=== PATIENT | female | born 1985 | race Caucasian/White ===

== ENCOUNTER 2019-08-04 13:20 | Inpatient (IN) | payer OTHER ==
[2019-07-26 18:57] VITALS: BMI 21.1
--- NOTE | 2019-08-03 09:37 | HP ---
Admitting History and Physical - Primary Care Physician PCP: Aurelio Huertas - Admission Chief Complaint: High risk for breast cancer History of Present Illness: Patient is a 34 yo female who presents as a high risk for breast cancer patient secondary to strong family hx of breast and ovarian cancer and personal hx of BRCA positivity. Mammo, US and MRI done 06/2019 were all wnl. The patient is now presenting for bilateral mastectomy with implant reconstruction. History Source: Patient Limitations to Obtaining History: No Limitations - Past Medical History ...LMP Comment: s/p Hysterectomy Additional Past Medical History: NONE - Past Surgical History Past Surgical History: Yes: Oopherectomy (left side sec to cyst 12/2012) Additional Past Surgical History: I & D of right breast abscess 2015 - Smoking History Smoking history: Never smoked Have you smoked in the past 12 months: No - Alcohol/Substance Use Hx Alcohol Use: Yes (socialy) Home Medications - Allergies Allergies/Adverse Reactions: Allergies Allergy/AdvReac Type Severity Reaction Status Date / Time bacitracin Allergy Swelling Verified 07/26/19 19:06 [From Neosporin ([id number])] miconazole Allergy Swelling Verified 07/26/19 19:06 [From Neosporin AF] neomycin Allergy Swelling Verified 07/26/19 19:06 [From Neosporin ([id number])] polymyxin B Allergy Swelling Verified 07/26/19 19:06 [From Neosporin ([id number])] - Home Medications Home Medications: Ambulatory Orders Estradiol 0.05 mg TD WEEKLY 07/26/19 Family Medical History Family Hx Cancer: Mother (ovarian cancer at 43), Father (prostate cancer at 55) Other Family History: maternal aunt x 2 breast cancer. maternal uncle- melanoma. maternal cousin BRCA pos. paternal GM-CRC Review of Systems - Review of Systems Constitutional: reports: No Symptoms Cardiovascular: reports: No Symptoms Respiratory: reports: No Symptoms Physical Examination Constitutional: Yes: Well Nourished, Calm Breast(s): Yes: Other (Ptotic C-cups with no significant skin changes or nipple discharge. No suspicious masses or adenopathy noted bilaterally.) Problem List - Problems (1) At high risk for breast cancer Code(s): Z91.89 - OT PERSONAL RISK FACTORS, NOT ELSEWHERE CLASSIFIED Assessment/Plan Plan: Bilateral mastectomy with implant reconstruction
[2019-08-04] MEDS ORDERED: fentaNYL CITRATE 250 MCG/5 ML VIAL ONE (13:46)
[2019-08-04] MEDS ORDERED: ONDANSETRON 4 MG/2 ML VIAL ONE (13:46)
[2019-08-04] MEDS ORDERED: DEXAMETHASONE SOD PHOSPHATE 4 MG/1 ML VIAL ONE (13:46)
[2019-08-04] MEDS ORDERED: ceFAZolin SODIUM 1 GM VIAL ONE ×4 (13:46→16:08)
[2019-08-04] MEDS ORDERED: PROPOFOL 20 ML ONE (13:47)
[2019-08-04] MEDS ORDERED: ROCURONIUM BROMIDE 50 MG/5 ML SYRINGE ONE ×2 (13:47→16:08)
[2019-08-04] MEDS ORDERED: MIDAZOLAM HCL 2 MG/2 ML SINGLE DOSE VIAL ONE (13:47)
[2019-08-04] MEDS ORDERED: SUCCINYLCHOLINE CHLORIDE 200 MG/10 ML SYRINGE ONE (13:47)
[2019-08-04] MEDS ORDERED: GENTAMICIN SO4 80 MG/2 ML VIAL ONE ×2 (14:08→14:29)
[2019-08-04] MEDS ORDERED: LIDOCAINE 1%/EPI 1:100000 (20 ML MULTI DOSE VIAL) ONE ×2 (14:08→14:29)
[2019-08-04] MEDS ORDERED: BUPIVACAINE HCL/PF 0.5% (5MG/ML) 10 ML VIAL ONE ×2 (14:08→14:29)
[2019-08-04] MEDS ORDERED: BUPIVACAINE LIPOSOME/PF (EXPAREL) 266 MG/20 ML VIAL ONE (14:34)
[2019-08-04] MEDS ORDERED: oxyCODONE HCL 5 MG TABLET PO PRN (14:36)
[2019-08-04] MEDS ORDERED: ESTRADIOL 0.05 MG TD SCH (14:45)
[2019-08-04] MEDS ORDERED: DEXTROSE 5%-0.45% SALINE 1,000 ML IV SCH (14:45)
[2019-08-04] MEDS ORDERED: LACTATED RINGERS SOLUTION 1,000 ML IV SCH (15:15)
[2019-08-04] MEDS ORDERED: PROMETHAZINE HCL 25 MG/1 ML VIAL IVPB PRN (15:17)
[2019-08-04] MEDS ORDERED: ePHEDrine SULFATE 50 MG/1 ML AMPULE ONE (16:17)
[2019-08-04] MEDS ORDERED: BUPIVACAINE HCL/PF 0.5% (5 MG/ML) 30 ML VIAL IJ ONE (16:33)
[2019-08-04] MEDS ORDERED: BUPIVACAINE LIPOSOME/PF (EXPAREL) 266 MG/20 ML VIAL NR ONE (16:33)
[2019-08-04] MEDS ORDERED: NEOSTIGMINE METHYLSULFATE 0.5 MG/ML - 10 ML MDV ONE (17:02)
[2019-08-04] MEDS ORDERED: GLYCOPYRROLATE 0.2 MG/1 ML VIAL ONE (17:02)
[2019-08-04] MEDS ORDERED: KETOROLAC TROMETHAMINE 30 MG/1 ML VIAL ONE (17:16)
--- NOTE | 2019-08-04 17:55 | OP ---
Operative Note - Note: Operative Date: 08/04/19 Pre-Operative Diagnosis: high risk breast cancer Operation: bilateral nipple sparing mastectomies with reconstruction/cortiva allograft dermis and implants Surgeon: Dane Zabala Linderman Operator: Dorota Mike Anesthesiologist/PILOT TEACHER: Melony Mota Anesthesia: General Estimated Blood Loss (mls): 100 Fluid Volume Replaced (mls): 1,700 Operative Report Dictated: Yes
[2019-08-04] MEDS: ONDANSETRON 4 MG/2 ML VIAL IVPUSH PRN (19:56)
[2019-08-04] MEDS: ACETAMINOPHEN 325 MG TABLET (FP) PO PRN (19:56)
[2019-08-04] MEDS: oxyCODONE HCL 5 MG TABLET PO PRN (19:57)
[2019-08-04] MEDS: CEFAZOLIN 1 GM/D5W 1 GRAM/50 ML BAG IVPB SCH ×2 (21:04→22:50)
[2019-08-05] MEDS: ACETAMINOPHEN 325 MG TABLET (FP) PO PRN ×5 (00:06→23:55)
[2019-08-05] MEDS: oxyCODONE HCL 5 MG TABLET PO PRN (00:07)
[2019-08-05] MEDS: CEFAZOLIN 1 GM/D5W 1 GRAM/50 ML BAG IVPB SCH ×4 (03:55→20:16)
[2019-08-05 08:04] LABS: HEMATOCRIT 31.2 % (32.4-45.2); HEMOGLOBIN 10.6 GM/dl (10.7-15.3); MCH 31.7 pg (25.7-33.7); MCHC 34.1 g/dl (32.0-36.0); MEAN PLT VOLUME 9.8 fl (7.5-11.1); PLATELET COUNT 165 K/MM3 (134-434); RBC 3.36 M/mm3 (3.60-5.2); RDW 12.6 % (11.6-15.6); WHITE BLOOD COUNT 12.1 K/mm3 (4.0-10.8)
--- NOTE | 2019-08-05 09:09 | OP ---
DATE OF OPERATION: 08/04/2019 PREOPERATIVE DIAGNOSIS: Genetic susceptibility for breast cancer, BRCA1 positive. POSTOPERATIVE DIAGNOSIS: Genetic susceptibility for breast cancer, BRCA1 positive. PROCEDURE: Bilateral total nipple-sparing mastectomies through inframammary approach with bilateral direct implant reconstruction with Cortiva. PRIMARY SURGEON: Eduardo Dodge MD MIXING SUPERVISOR: DAY Monique PLASTIC SURGEON: Dane Zabala MD MIXING SUPERVISOR: DAY Linn COMPLICATIONS: There were no complications. ANESTHESIA: The patient underwent general endotracheal anesthesia for the procedure. INDICATION: Briefly the patient is a 33-year-old premenopausal white female of [place] descent. She has a strong family history with her mother who had ovarian cancer at age 43 and 2 maternal aunts had breast cancer at age 30 and 45. She has a maternal uncle who had melanoma at age 35 and her father had prostate cancer at age 55. She has a maternal cousin who tested BRCA1 positive. The patient herself tested BRCA1 positive in April 2012 and had been getting close surveillance. She had a hysterectomy and right oophorectomy in November 2018. The patient decided to undergo bilateral risk-reduction prophylactic mastectomies and was seen in consultation preoperatively and understood our technique of an inframammary incision with a nipple-sparing approach. She understood that we do retroareolar biopsies at the time of surgery. If these show cancer we would remove the nipples. She understood the lack of any evidence shown for doing prophylactic sentinel lymph node biopsy. She was seen by Dr. Zabala, the plastic surgeon, preoperatively and understood the direct implant reconstruction. She had a recent mammography as well as MRI which were negative. The patient was brought in for the surgery on August 04, 2019. In the holding area site verification was made and informed consent was obtained. She was marked preoperatively by the plastic surgeon. DESCRIPTION OF PROCEDURE: She was brought into the operating room and laid on the OR table in a supine position. Venodynes were placed on the lower extremities prior to induction. She received 2 g of Ancef prior to incision. She underwent general endotracheal anesthesia and both breasts were sterilely prepped and draped in the usual fashion. Timeout was performed. The left mastectomy was first performed. An inframammary incision was marked out about 9 cm in length in the inframammary fold and the incision was made and the skin edges were everted. The breast was retracted inferiorly using [place] clamps. The skin flap was raised using the PEAK radiofrequency device superiorly to the level of the clavicle, medially to the level of the sternum, laterally to the level of the latissimus, and inferiorly below the level of the inframammary fold. The breast was then taken down off the pectoralis major muscle using electrocautery from inferomedial to superolateral and completely removed intact. It was oriented with a long lateral, short superior suture and weighed to allow for appropriate cosmetic result. The skin edges were then inspected and the skin flaps trimmed to remove all visual breast tissue. A retroareolar biopsy was taken underneath the left nipple-areolar complex and sent for frozen section and came back negative so the left nipple was spared. Hemostasis was achieved and the wound was copiously irrigated with warm sterile saline. At this point the right breast was approached. A right breast inframammary incision was made again about 9 cm in length symmetrical to the right breast inframammary incision. The skin edges were everted and the breast was retracted inferiorly using [place] clamps. The skin flap was raised using the PEAK radiofrequency device superiorly to the level of the clavicle, medially to the level of the sternum, laterally to the level of the latissimus, and inferiorly below the level of the inframammary fold. The breast was taken down off the pectoralis major muscle using electrocautery from inferomedial to superolateral and completely removed intact. It was oriented with a long lateral, short superior suture and weighed to allow for appropriate cosmetic result. The skin flaps were then inspected and trimmed to remove all visual breast tissue. A retroareolar biopsy was taken underneath the right nipple-areolar complex and sent for frozen section and came back negative so the right nipple was spared as well. Hemostasis was achieved and the wound was copiously irrigated with warm sterile saline. At this point Dr. Zabala became the primary surgeon and performed the bilateral subpectoral direct implant reconstruction with Cortiva. The Cortiva was sutured into the inferolateral aspect of the pectoralis major muscle to allow for the direct implant reconstructions. Two Carl drains will be placed around both implants and brought through separate stab incisions on the lateral skin flap and secured in place using 3-0 nylon suture. All wounds will be closed by Plastic Surgery using interrupted 3-0 deep dermal PDS suture and a running 4-0 subcuticular PDS suture. We did use the SPY skin perfusion device during the case which showed excellent blood flow in both skin flaps and nipple-areolar complexes. The patient will be extubated and recovered in the postanesthesia care unit after the reconstruction and then will be recovered and admitted postoperatively for pain and wound management. We did instill 60 mL of Exparel which was diluted with 20 mL of saline and 20 mL of 0.25% Marcaine and 30 mL were injected into each chest wall prior to closure for postoperative pain control. All sponge and needle counts were correct at the end of the case and the estimated blood loss was about 200 mL. She was hemodynamically stable throughout. EDUARDO DODGE M.D. [id number]
--- NOTE | 2019-08-05 09:31 | PN ---
Progress Note (short form) - Note Progress Note: 34F s/p bilateral prophylactic mastectomy with breast reconstruction, POD 1. Pt states she is doing well only complaining of pain. Pt denies fever, chills, n/v, sob. Vital Signs Temp 98.0 F 08/05/19 06:00 Pulse 95 H 08/05/19 06:00 Resp 18 08/05/19 06:00 BP 103/55 L 08/05/19 06:00 Pulse Ox 100 08/05/19 06:00 Intake & Output 08/04/19 08/04/19 08/05/19 11:59 23:59 11:59 Intake Total 1700 1460 Output Total 385 950 Balance 1315 510 Weight 135 lb Intake: IV 1700 1000 D5-1/2Ns - 1,000 ml @ 100 1000 mls/hr IV ASDIR KEENAN Rx#: [id number] IVPB 100 Oral 360 Output: Drainage 135 150 drain1 0 30 drain2 10 45 drain3 40 75 drain4 0 0 Urine 800 Straight Cath 800 Estimated Blood Loss 250 Other: Voiding Method Bedpan Toilet Height 5 ft 7 in Body Mass Index (BMI) 21.1 Weight Measurement Method Standing Scale CBC, BMP 08/05/19 07:34 PE: Gen: A&O x 3 Resp: breathing comfortably Breast: incisions clean no erythema or discharge drains in place with serosanguinous discharge, skin is pink and warm. Problem List - Problems (1) At high risk for breast cancer Assessment/Plan: Plan -pt appears to be doing well, continue monitor drain output -pain control -OOB/ambulate -continue bra Pt is cleared for discharge from plastic standpoint, should follow up with Dr. Zabala as outpatient.
--- NOTE | 2019-08-05 09:33 | SURG ---
Surgery Mash Tub Cooker Note Mash Tub Cooker: Dorota Mike PA-C Date of Service: 08/04/19 Diagnosis: high risk breast cancer Procedure: bilateral nipple sparing mastectomies with reconstruction/cortiva allograft dermis and implants I was present for the entirety of the operative procedure. For further detail, please refer to operative report. Visit type - Case Type Case Type: Scheduled - Emergency Emergency Visit: No - New patient This patient is new to me today: Yes Date on this admission: 08/05/19 - Critical Care Critical Care patient: No
[2019-08-05] MEDS: ONDANSETRON 4 MG/2 ML VIAL IVPUSH PRN (09:34)
[2019-08-05] MEDS: diazePAM 5 MG TABLET PO PRN ×2 (10:51→23:57)
--- NOTE | 2019-08-05 12:52 | PN ---
Progress Note, Physician Chief Complaint: High risk breast cancer S/P bilateral total mastectomies nipples sparing with implant and dermal matrix POD#1 History of Present Illness: Patient was dizzy and lightheaded last night after standing BP dropped to 90/ 45 but increased after fluid to 102/56. She is less lightheaded this am and will try combination of tylenol with valium since oxycodone is causing some nausea and not relieving the pain. zofran given for nausea. - Current Medication List Current Medications: Active Medications Acetaminophen (Tylenol -) 650 mg PO Q4H PRN PRN Reason: FEVER Last Admin: 08/05/19 09:32 Dose: 650 mg Diazepam (Valium -) 5 mg PO Q8H PRN PRN Reason: MUSCLE SPASMS Last Admin: 08/05/19 10:51 Dose: 5 mg Cefazolin Sodium (Ancef 1 Gm Premixed Ivpb -) 1 gram in 50 mls @ 100 mls/hr IVPB Q6H-IV KEENAN Stop: 08/11/19 14:59 Last Admin: 08/05/19 09:31 Dose: 100 mls/hr Dextrose/Sodium Chloride (D5-1/2ns -) 1,000 mls @ 100 mls/hr IV ASDIR KEENAN Non-Formulary Medication (Estradiol [Estradiol]) 0.05 mg TD WEEKLY KEENAN Ondansetron HCl (Zofran Injection) 4 mg IVPUSH Q6H PRN PRN Reason: NAUSEA AND/OR VOMITING Last Admin: 08/05/19 09:34 Dose: 4 mg Oxycodone HCl (Roxicodone -) 5 mg PO Q4H PRN PRN Reason: PAIN LEVEL 1-5 Last Admin: 08/05/19 00:07 Dose: 5 mg Oxycodone HCl (Roxicodone -) 10 mg PO Q4H PRN PRN Reason: PAIN LEVEL 6-10 - Objective Vital Signs: Vital Signs Temperature 98.0 F 08/05/19 06:00 Pulse Rate 95 H 08/05/19 06:00 Respiratory Rate 18 08/05/19 06:00 Blood Pressure 103/55 L 08/05/19 06:00 O2 Sat by Pulse Oximetry (%) 100 08/05/19 06:00 Constitutional: Yes: No Distress Breast(s): Yes: Other (Bilateral flaps viable incision intact minimal echymosis MATHEW drains intact serosanguinous output, dressing changed) Labs: CBC, BMP 08/05/19 07:34 Problem List - Problems (1) At high risk for breast cancer Code(s): Z91.89 - OT PERSONAL RISK FACTORS, NOT ELSEWHERE CLASSIFIED Assessment/Plan IV antibiotics SCD spirometry monitor BP and for anymore C/Os of dizziness or lightheadedness valium/tylenol prn plan for discharge tomorrow
[2019-08-05] MEDS ORDERED: LACTATED RINGERS SOLUTION 1000 ML INFUS.BAG IV ONE (13:05)
[2019-08-06] MEDS: CEFAZOLIN 1 GM/D5W 1 GRAM/50 ML BAG IVPB SCH ×2 (02:47→09:28)
[2019-08-06] MEDS: ACETAMINOPHEN 325 MG TABLET (FP) PO PRN ×2 (07:12→11:26)
[2019-08-06 08:41] LABS: ALBUMIN 3.1 g/dl (3.4-5.0); BILIRUBIN,TOTAL 0.4 mg/dl (0.2-1); CALCIUM 8.2 mg/dl (8.5-10); CREATININE 0.6 mg/dl (0.55-1.3); POTASSIUM 3.9 mmol/L (3.5-5.1); TOT PROT 5.5 g/dl (6.4-8.2)
[2019-08-06] MEDS: diazePAM 5 MG TABLET PO PRN (09:28)
[2019-08-06 09:37] LABS: BASO % 0.3 % (0-2.0); EOS % 3.1 % (0-4.5); HEMATOCRIT 31.2 % (32.4-45.2); HEMOGLOBIN 10.6 GM/dl (10.7-15.3); LYMPH % 17.9 % (8-40); MCHC 34.1 g/dl (32.0-36.0); MEAN PLT VOLUME 10.1 fl (7.5-11.1); MONO % 6.5 % (3.8-10.2); NEUT % 72.2 % (42.8-82.8); PLATELET COUNT 151 K/MM3 (134-434); RBC 3.32 M/mm3 (3.60-5.2); RDW 12.6 % (11.6-15.6); WHITE BLOOD COUNT 8.1 K/mm3 (4.0-10.8)
--- NOTE | 2019-08-06 10:22 | EKG ---
Test Reason : Blood Pressure : / mmHG Vent. Rate : 080 BPM Atrial Rate : 080 BPM P-R Int : 150 ms QRS Dur : 090 ms QT Int : 368 ms P-R-T Axes : 042 033 046 degrees QTc Int : 424 ms NORMAL SINUS RHYTHM NORMAL ECG NO PREVIOUS ECGS AVAILABLE Confirmed by KENNY LEIVA, FIDEL (2014) on 08/06/2019 10:22:31 AM Referred By: Aurelio Huertas Confirmed By:FIDEL COX MD
[2019-08-06 13:20] VITALS: BP 94/55; PULSE 96; TEMP 99.1
--- NOTE | 2019-08-06 13:20 | DS ---
Physical Examination Vital Signs: Vital Signs Temperature 98.1 F 08/06/19 08:52 Pulse Rate 90 08/06/19 08:52 Respiratory Rate 16 08/06/19 08:52 Blood Pressure 109/68 08/06/19 08:52 O2 Sat by Pulse Oximetry (%) 100 08/06/19 08:52 Constitutional: Yes: Well Nourished, No Distress Wound/Incision: Yes: Clean/Dry, Well Approximated (Flaps are viable, no signs of infection.) Labs: CBC, BMP 08/06/19 07:32 08/06/19 07:32 Discharge Summary Problems reviewed: Yes Reason For Visit: GENETIC SUSCEPTIBILITY Condition: Good - Instructions Diet, Activity, Other Instructions: Post Operative Instructions - [facility] We hope your recovery will be uneventful. For those of you who have been given general anesthesia, there is a possibility you might have some lightheadedness and possibly nausea. It is important that each patient, especially those who have had general anesthesia, follow these instructions, please: 1. Do NOT operate a motor vehicle for 24 hours. 2. Do NOT drink any alcoholic beverages for 24 hours. 3. Do NOT take any sedatives, narcotics, or tranquilizers for 24 hours unless specifically ordered by your surgeon. 4. Do NOT undertake any strenuous exercise or outside activity for 24 hours unless specifically permitted by your surgeon. 5. Eat light foods that are easy to digest. If you have any problems with nausea and vomiting, lie down and rest. If it continues, call your surgeon. 6. Call your surgeon AT ONCE if you have problems with: a. Bleeding b. Urinating c. Excessive pain or drainage d. Numbness If any problems occur, call your physician first. If you cannot reach him/her, call the Ambulatory Surgery Unit at [phone], or the Emergency Room at . Follow up with Drs. Huertas / Efrain in 7 days. Medication: Vicodin E-S OR Percocet 1-2 tablets every 4-6 hrs as needed for 5-7 days. Wound Care: Keep wound dry and clean for 48 hours. You may remove the dressing after 48 hours and may shower. Keep steri-strips in place until follow-up appointment No heavy lifting or strenuous activities. BREAST SURGERY INSTRUCTIONS Mino Huertas M.D., FACS Aurelio Huertas M.D., FACS Sandor Zuniga M.D., FACS 1. Please call the office at to make a follow up appointment with your surgeon. This number can be also used for any urgent issues you may have. 2. Call us immediately if any of the following occur: *Bleeding from the incision or drain site (a small amount is normal) *Fever or chills *Redness and worsening tenderness around the surgical site *Drainage of pus or fluid from the incision or drain site 3. You may change the surgical dressing two (2) days after your surgery, and may shower then. If you have drains, you may shower after they have been removed, until then take a sponge bath. 4. It is normal for there to be some bruising and tenderness around the surgical site, and the breast may also be firm in this area. 5. Your surgeon used 3M DuraPrep Surgical Solution, a bacteria-killing skin preparation. It is recommended that this film remain on the skin after the procedure. The film will gradually wear away. If, however, early removal is desired: 1. Apply 8610 or 8611 3M Remover solution to the prepped area, keeping away from the wound edge or puncture site. Wipe off with a disposable towel. OR 2. Soak gauze with 70% Isopropyl alcohol and place on the prepped area for at least 40 seconds. Lightly scrub to remove the solution. 6. Please wear a comfortable bra (sports or surgical bra) all day and all night until your first follow-up visit with your surgeon. 7. The pain medicine you have been prescribed may make you constipated; make sure you drink plenty of water. You may use an over the counter laxative if needed. 8. You may resume your normal diet after surgery, although you may want to avoid rich foods for the first twenty-four (24) hours after surgery. Alcoholic drinks should be avoided while taking the prescribed pain medicine. 9. You may resume normal activities as long as there is no discomfort, but do not do upper body exercises until after your follow-up appointment. Do not lift anything heavier than a large phone book. You may resume driving once you have stopped taking the prescribed pain medicine and feel comfortable doing arm movements. WEAR BRA, No shower, empty and record MATHEW output twice daily Referrals: Aurelio Huertas MD [Staff Physician] - Dane Zabala MD [Staff Physician] - - Home Medications Comprehensive Discharge Medication List: Ambulatory Orders Estradiol 0.05 mg TD WEEKLY 07/26/19 Cefadroxil 500 mg PO BID #20 capsule 08/05/19 Diazepam [Valium] 5 mg PO BID #10 tablet MDD 2 08/05/19 Oxycodone HCl/Acetaminophen [Percocet 5-325 mg Tablet] 1 - 2 tab PO Q6H PRN #30 tab MDD 6 08/05/19
--- NOTE | 2019-08-08 12:02 | OP ---
DATE OF OPERATION: 08/04/2019 PREOPERATIVE DIAGNOSIS: Bilateral acquired chest wall deformity, status post bilateral mastectomy (611.89) with Dr. Eduardo Huertas. POSTOPERATIVE DIAGNOSIS: Bilateral acquired chest wall deformity, status post bilateral mastectomy (611.89) with Dr. Eduardo Huertas. PROCEDURE: 1. Right immediate breast reconstruction utilizing immediate insertion of silicone breast implant and Cortiva allograft dermis reconstruction. 2. Left immediate breast reconstruction utilizing immediate insertion of silicone breast implant and Cortiva allograft dermis reconstruction. 3. Intravenous injection of indocyanine green dye and intraoperative diagnostic evaluation of noncoronary intraoperative fluorescein vascular angiography x 2. SURGEON: Matthew Zabala. PERSONAL PROPERTY ASSESSOR: DAY Linn ANESTHESIA: General. OPERATIVE PROCEDURE IN DETAIL: The patient was taken to the operating room. After induction of general anesthesia in the supine position, both arms were extended and padded. Venodyne boots were placed. The entire chest wall was painted with ChloraPrep solution over its entire extent, and sterile drapes were placed in the usual fashion. The markings, which had been made in the standing position preoperatively, were reoutlined with the patient's knowledge. Time-out procedure was performed. Attention was turned by Dr. Huertas to the mastectomies. Bilateral inframammary incisions were made and Dr. Huertas performed mastectomies. This will be dictated under separate cover. Upon completion of the mastectomies, the wounds were copiously irrigated and attention was turned to the right breast. A subpectoral dissection was begun on the right breast, superiorly from the second rib, medially to the sternal fibers, and down to the inframammary fold, elevating the pectoralis major muscle from its insertion. At this point, a medium-sized sheet of Cortiva allograft dermis brought into the field and sutured superiorly along the pectoralis major muscle after rehydration. This was carried along the lateral mammary fold and down the side of the breast reconstruction. At this point, a Sientra round smooth high-profile style 107, 505-mL implant was chosen. The left breast tissue removed was 217 g and the right breast approximately 211 g. This implant was placed and then sutured with 3-0 Vicryl suture continued along the inframammary fold, completely covering the implant itself. The exact same procedure was carried out symmetrically on the opposite breast, also placing a Sientra round smooth high-profile style 107, 505-mL implant in the same subpectoral pocket. Good symmetry was seen in the sitting position. After the implants were in place, the patient was injected with 10 mL of indocyanine green dye and the Spy imaging system was brought into the field. The skin flowed to the right and left breasts and the nipple-areolar complex, and the entire skin flaps were evaluated and seen to be viable with good blood flow. Two Carl drains were brought out through separate stab wounds laterally. The Smart Infuser pump catheter was inserted medially and into the subpectoral position. Both wounds were closed symmetrically using 3-0 PDS suture on the deep tissue, 3-0 in a deep dermal fashion, and 4-0 in a subcuticular fashion. Both wounds were dressed sterilely with Mastisol and Steri-Strips with a surgical bra and a compression strap. The patient tolerated the procedure well. She was awakened, extubated and transferred to the recovery room in satisfactory condition. EDUARDO ZABALA M.D. [id number]
--- NOTE | 2019-08-09 11:43 | PATH ---
Surgical Pathology Report Patient Name: TAMIKO DILLON Med. Rec. #: [id number] /Age/Gender: 1985 (Age: 34) / F Account: [id number] Location: [facility] MED-SURG Taken: 08/04/2019 Received: 08/04/2019 Reported: 08/09/2019 Physicians: Aurelio Huertas M.D. Specimen(s) Received A: RETROAREOLAR BIOPSY RIGHT (FS) B: RETROAREOLAR BIOPSY LEFT (FS) C: RIGHT BREAST MASTECTOMY D: LEFT BREAST MASTECTOMY Clinical History BRCA 1+ Intraoperative Consult Diagnosis A. Right breast retroareolar biopsy, frozen section: Benign breast parenchyma. B. Left breast retroareolar biopsy, frozen section: Benign breast parenchyma. Alton Nolasco M.D., 08/04/2019 Final Diagnosis A. RETROAREOLA, RIGHT, BIOPSY (FS): BENIGN BREAST TISSUE; NEGATIVE FOR MALIGNANCY. B. RETROAREOLA, LEFT, BIOPSY (FS): BENIGN BREAST TISSUE; NEGATIVE FOR MALIGNANCY. C. BREAST, RIGHT, NIPPLE-SPARING MASTECTOMY: BENIGN BREAST TISSUE SHOWING FIBROCYSTIC CHANGES INCLUDING MICROCYST FORMATION WITH FOCAL APOCRINE METAPLASIA, USUAL DUCTAL HYPERPLASIA (UDH) AND SECRETORY CHANGE. D. BREAST, LEFT, NIPPLE-SPARING MASTECTOMY: BENIGN BREAST TISSUE SHOWING FIBROCYSTIC CHANGES INCLUDING MICROCYST FORMATION AND USUAL DUCTAL HYPERPLASIA (UDH), SECRETORY CHANGE AND FIBROADENOMATOID CHANGE. Electronically Signed Brenda Ribeiro M.D. Gross Description A. Received fresh labeled "retroareolar biopsy right," is a 1.0 x 0.7 x 0.5 cm portion of fibroadipose tissue. The specimen is entirely submitted for frozen section. The frozen section residue is entirely submitted in one cassette. B. Received fresh labeled "retroareolar biopsy left," is a 1.0 x 0.7 x 0.5 cm portion of fibroadipose tissue. The specimen is entirely submitted for frozen section. The frozen section residue is entirely submitted in one cassette. C. Received in formalin, labeled "right mastectomy," is a 219 gram, 15.0 x 11.0 x 2.7 cm. right mastectomy specimen with a short suture marking the superior aspect and a long suture marking the lateral aspect of the specimen, per the surgeon. There is no skin or nipple present. The deep margin is inked black and the anterior soft tissue margin is inked blue. The specimen is serially sectioned from lateral to medial. Sectioning reveals abundant dense, white, focally firm parenchyma. Outside [employer] sections are submitted in 14 cassettes as follows: 1-3-upper outer quadrant; 4-6-lower outer quadrant; 7-9-upper inner quadrant; 10-12-lower inner quadrant; 13-anterior soft tissue margin; 14-deep margin. D. Received in formalin, labeled "left mastectomy," is a 245 gram, 12.5 x 11.5 x 3.0 cm. left mastectomy specimen with a short suture marking the superior aspect and a long suture marking the lateral aspect of the specimen, per the surgeon. There is no skin or nipple present. The deep margin is inked black and the anterior soft tissue margin is inked blue. The specimen is serially sectioned from medial to lateral. Sectioning reveals abundant dense, white, focally firm fibrous tissue. Outside Sales Account Manager sections are submitted in 14 cassettes as follows: 1-3-upper outer quadrant; 4-6-lower outer quadrant; 7-9-upper inner quadrant; 10-12-lower inner quadrant; 13-anterior soft tissue margin; 14-deep margin. Time to formalin fixation: Not given Total formalin fixation time: Approximately 26 hours 08/05/201908/05/2019
--- NOTE | 2019-08-10 15:53 | SURG ---
Surgery Film Technician Note Film Technician: Dorota Mike PA-C Date of Service: 08/04/19 Diagnosis: high risk breast cancer Procedure: bilateral nipple sparing mastectomies with reconstruction/cortiva allograft dermis and implants I was present for the entirety of the operative procedure. For further detail, please refer to operative report.
== END 2019-08-06 13:45 | disposition home or self-care (01) | DRG 941 ==
LOC: FASUSAT 13:20 → EDSTATUS 13:30 → FASUSAT 18:42 → FM/S 18:42
PROVIDERS: ADMIT Surgery Surgical Oncology; ATTEND Surgery Surgical Oncology
PROC: 4A1GXSH Monitoring of Skin and Breast Vascular Perfusion using Indocyanine Green Dye, External Approach (ICD-10-PCS; 2019-08-04)
PROC: 0HTV0ZZ Resection of Bilateral Breast, Open Approach (ICD-10-PCS; principal; 2019-08-04 15:03)
PROC: 0HHV0NZ Insertion of Tissue Expander into Bilateral Breast, Open Approach (ICD-10-PCS; 2019-08-04 15:03)
DX: Z15.01 Genetic susceptibility to malignant neoplasm of breast (principal)
CPT/HCPCS: 36415; 80053; 82962; 85025; 85027; 88307-TC; 88331-TC; 93005; 94760